=== PATIENT | female | born 1995 | race African-American/Black ===

== ENCOUNTER 2020-12-02 12:44 | Emergency (ER) | payer OTHER, BC ==
[~2020-12-02] VITALS: Ht 162.6 cm; Wt 86.2 kg
[2020-12-02 12:44] VITALS: BP_SYST 133
[2020-12-02] MEDS ORDERED: BACITRACIN 1 GM OINT TP ONE (13:31)
[2020-12-02] MEDS: ONDANSETRON HCL 4 MG/2 ML VIAL IVP ONE (13:56)
[2020-12-02] MEDS: LIDOCAINE/EPI 2% 1:100000 20 ML VIAL INJ ONE (13:56)
[2020-12-02] MEDS: MORPHINE 2 MG/ML INJ. SYRINGE IVP ONE (13:56)
[2020-12-02 14:04] LABS: HEMOGLOBIN 14.2 g/dL (12.0-16.0)
[2020-12-02 14:10] LABS: BASOPHILS # (AUTO) 0.1 K/uL (0.0-0.2); BASOPHILS % (AUTO) 0.5 % (0.0-2.0); EOSINOPHILS # (AUTO) 0.1 K/uL (0.0-0.4); EOSINOPHILS % (AUTO) 0.4 % (0.0-4.0); HEMATOCRIT 42.5 % (36-48); LYMPHOCYTES # (AUTO) 1.4 K/uL (1.0-5.5); LYMPHOCYTES % (AUTO) 9.3 % (20.5-51.5); MEAN CORPUSCULAR HEMOGLOBIN 27 pg (27-31); MEAN CORPUSCULAR HGB CONC 33 % (32-36); MEAN CORPUSCULAR VOLUME 82 fL (79.0-98.0); MONOCYTES # (AUTO) 0.8 K/uL (0.0-1.0); NEUTROPHILS # (AUTO) 12.7 K/uL (1.8-7.7); NEUTROPHILS % (AUTO) 84.8 % (40.0-70.0); PLATELET COUNT (AUTO) 409 K/uL (130-430); RED CELL DISTRIBUTION WIDTH 13.5 % (9.0-15.0)
[2020-12-02 14:22] LABS: ANION GAP 11 (5-15); CALCIUM 8.9 mg/dL (8.4-11.0); CHLORIDE 106 mmol/L (98-107); CREATININE 1.13 mg/dL (0.55-1.30); GLUCOSE 108 mg/dL (70-99); SODIUM SERUM 142 mmol/L (136-145); UREA NITROGEN, BLOOD 11 mg/dL (8-21)
[2020-12-02 14:23] LABS: INR 1.1 (0.8-1.2); PROTHROMBIN TIME 10.9 SECS (9.5-12.5)
[2020-12-02 14:25] LABS: GFR AFRICAN AMERICAN 77 mL/min (>90)
[2020-12-02 14:28] LABS: ALANINE AMINOTRANSFERASE 18 U/L (12-78); ALBUMIN 3.9 g/dL (3.4-4.8); ASPARTATE AMINOTRANSFERASE 15 U/L (10-37); TOTAL BILIRUBIN 0.3 mg/dL (0.0-1.0)
[2020-12-02 14:36] LABS: ALCOHOL, BLOOD < 3 mg/dL (<10)
[2020-12-02 16:22] LABS: BILIRUBIN,URINE NEGATIVE (NEGATIVE); BLOOD, URINE NEGATIVE (NEGATIVE); COLOR,URINE YELLOW (YELLOW); GLUCOSE,URINE NEGATIVE (NEGATIVE); KETONES,URINE 2+ (NEGATIVE); LEUKOCYTE ESTERASE ,URINE NEGATIVE (NEGATIVE); NITRITE, URINE POSITIVE (NEGATIVE); PROTEIN URINE NEGATIVE (NEGATIVE); UROBILINOGEN,URINE 0.2 (0.2-1.0)
[2020-12-02] MEDS: ACETAMINOPHEN 325 MG TABLET PO ONE (16:27)
[2020-12-02 16:51] LABS: BARBITURATE, URINE NEGATIVE (NEG <=200); BENZODIAZEPINE, URINE NEGATIVE (NEG <=150); METHAMPHETAMINES SCREEN,URINE NEGATIVE (NEG <=500); URINE AMPHETAMINE NEGATIVE (NEG <=500); URINE METHADONE NEGATIVE (NEG <=200)
[2020-12-02 16:52] LABS: CANNABINOID, URINE POSITIVE (NEG <=50); COCAINE, URINE NEGATIVE (NEG <=150); OPIATE, URINE POSITIVE (NEG <=100); PHENCYCLIDINE SCREEN,URINE NEGATIVE (NEG <=25); UR TRICYCLIC ANTIDEPRESSANTS NEGATIVE (NEG <=300); URINE OXYCODONE SCREEN NEGATIVE (NEG <=100); URINE PROPOXYPHENE SCREEN NEGATIVE (NEG <=300)
[2020-12-02 17:02] LABS: CLARITY/URINE HAZY (CLEAR); RBC,URINE 0-3 /HPF (0-3)
[2020-12-02 17:03] LABS: BACTERIA,URINE MANY /HPF (None Seen); MUCUS,URINE 1+ /LPF (None Seen); WBC,URINE 0-3 /HPF (0-3)
[2020-12-02 17:20] VITALS: BP_SYST 133
== END 2020-12-02 17:23 | disposition home or self-care (01) ==
LOC: SED 12:44
DX: S06.0X0A Concussion without loss of consciousness, initial encounter (principal); S51.811A Laceration without foreign body of right forearm, initial encounter; Z88.1 Allergy status to other antibiotic agents; V49.9XXA Car occupant (driver) (passenger) injured in unspecified traffic accident, initial encounter; Y93.89 Activity, other specified; Y92.413 State road as the place of occurrence of the external cause; Y99.8 Other external cause status
CPT/HCPCS: 12002; 36415; 70450; 71045; 73110; 73560; 76376; 80053; 80307; 81000; 84702; 85025; 85610; 85730; 86886; 86900; 86901; 87086; 96374; 96375; 99285; G0482; J2270; J2405